=== PATIENT | female | born 1995 | race Caucasian/White ===

== ENCOUNTER 2017-02-21 20:38 | Emergency (ER) | payer OTHER ==
[~2017-02-21] VITALS: Ht 167.6 cm; Wt 70.4 kg
[2017-02-21 21:17] LABS: HEMATOCRIT 38.2 % (36.0-46.0); MCH 29.4 PG (29.0-34.0); MCHC 33.2 G/DL (30.0-36.0); MCV 88.4 FL (83-99); MEAN PLAT.VOLUME 9.4 uM^3 (9.5-12.4); PLATELET COUNT 260 K/uL (156-360); RBC DIS.WIDTH-CV 11.9 % (11.8-14.6); RBC DIS.WIDTH-SD 38.5 % (39-53); RED BLOOD COUNT 4.32 M/uL (3.80-5.20); WHITE BLOOD COUNT 6.6 K/uL (4.1-10.2)
[2017-02-21] MEDS ORDERED: ZANTAC (21:19)
[2017-02-21] MEDS ORDERED: PREVIFEM1 EACH PO (21:19)
[2017-02-21] MEDS ORDERED: ZOLOFT (21:20)
[2017-02-21] MEDS ORDERED: IMITREX (21:20)
[2017-02-21] MEDS ORDERED: ZOFRAN (21:20)
[2017-02-21 21:28] LABS: CHLORIDE 107 mEq/L (99-109); POTASSIUM 3.7 mEq/L (3.7-5.4)
[2017-02-21 21:29] LABS: SODIUM 143 mEq/L (136-147)
[2017-02-21 21:30] LABS: GLUCOSE 109 mg/dL (70-99)
[2017-02-21 21:32] LABS: ANION GAP 10 MEQ/L (2-14)
[2017-02-21 21:34] LABS: GFR ESTIMATE (CALCULATED) > 59 mL/min/
[2017-02-21 21:35] LABS: UREA NITROGEN (BUN) 11 mg/dL (9-23)
[2017-02-21 21:43] LABS: QUANTITATIVE HCG < 4.0 MIU/ML
[2017-02-21 22:36] LABS: ADD MIUA? YES; BILIRUBIN NEGATIVE; BLOOD SMALL; COLOR AMBER ((YELLOW)); GLUCOSE (STRIP) NEGATIVE; KETONES NEGATIVE; LEUKOCYTES NEGATIVE; NITRITE POSITIVE; PROTEIN (STRIP) NEGATIVE; SPECIFIC GRAVITY 1.009 (1.000-1.030)
[2017-02-21 22:40] LABS: BACTERIA NONE SEEN /HPF; EPITHELIAL CELLS RARE /HPF; MUCUS NONE SEEN /LPF; RED BLOOD CELLS 0-5 /HPF (0-5); UCUL ADDED? NO; WHITE BLOOD CELLS NONE SEEN /HPF (0-5)
[2017-02-21 23:05] VITALS: BP 131/90
== END 2017-02-21 23:06 | disposition home or self-care (01) ==
LOC: EME 20:38
PROVIDERS: Physician Assistant
DX: N39.0 Urinary tract infection, site not specified (principal); R10.2 Pelvic and perineal pain; Z79.3 Long term (current) use of hormonal contraceptives; Z88.0 Allergy status to penicillin
CPT/HCPCS: 76856; 80048; 81003; 84702; 85027; 87086; 99281; 99284

== ENCOUNTER 2017-06-12 16:57 | Emergency (ER) | payer OTHER ==
[~2017-06-12] VITALS: Ht 167.6 cm; Wt 73.1 kg
[~2017-06-12 16:57] MED LIST: IMITREX; PREVIFEM1 EACH PO; ZANTAC; ZOFRAN; ZOLOFT
[2017-06-12 19:20] LABS: EOSINOPHIL (%) 3.3 % (0-5); EOSINOPHIL COUNT 0.4 K/uL (0-0.3); HEMATOCRIT 37.5 % (36.0-46.0); IMMATURE GRANULOCYTE (%) 0.3 % (0.0-0.7); INSTRUMENT ABS NEUTROPHIL CT 6.6 K/uL; LYMPHOCYTE COUNT 2.8 K/uL (1.0-2.8); MCH 28.8 PG (29.0-34.0); MCHC 32.8 G/DL (30.0-36.0); MCV 87.8 FL (83-99); MEAN PLAT.VOLUME 9.6 uM^3 (9.5-12.4); MONOCYTE (%) 6.1 % (3-12); MONOCYTE COUNT 0.6 K/uL (0-0.8); NEUTROPHIL (%) 63.2 % (45-76); NEUTROPHIL COUNT 6.6 K/uL (1.8-6.4); PLATELET COUNT 314 K/uL (156-360); RBC DIS.WIDTH-CV 11.7 % (11.8-14.6); RBC DIS.WIDTH-SD 37.3 % (39-53); RED BLOOD COUNT 4.27 M/uL (3.80-5.20); WHITE BLOOD COUNT 10.5 K/uL (4.1-10.2)
[2017-06-12 19:27] LABS: CHLORIDE 104 mEq/L (99-109); POTASSIUM 3.9 mEq/L (3.7-5.4); SODIUM 140 mEq/L (136-147)
[2017-06-12 19:29] LABS: GLUCOSE 88 mg/dL (70-99)
[2017-06-12 19:31] LABS: ANION GAP 10 MEQ/L (2-14); TOTAL BILIRUBIN 0.3 mg/dL (0.0-1.0)
[2017-06-12 19:33] LABS: ALKALINE PHOSPHATASE 61 IU/L (3-129); GFR ESTIMATE (CALCULATED) > 59 mL/min/
[2017-06-12 19:34] LABS: UREA NITROGEN (BUN) 9 mg/dL (9-23)
[2017-06-12 19:47] LABS: QUANTITATIVE HCG < 4.0 MIU/ML
[2017-06-12 19:52] LABS: INTERNAL CONTROL VALID? YES; MONOSPOT (MONONUCLEOSIS SEROL) NEGATIVE
[2017-06-12] MEDS ORDERED: LEVAQUIN750 MG PO (21:38)
[2017-06-12] MEDS ORDERED: MOTRIN800 MG PO (21:38)
[2017-06-12] MEDS ORDERED: ANTIFUNGAL30 GM TP (21:39)
[2017-06-12 21:55] VITALS: BP 118/74
== END 2017-06-12 21:58 | disposition home or self-care (01) ==
LOC: EME 16:57
PROVIDERS: Nurse Practitioner Family
DX: I88.9 Nonspecific lymphadenitis, unspecified (principal); B35.3 Tinea pedis; Z88.0 Allergy status to penicillin
CPT/HCPCS: 70487; 80053; 84702; 85025; 86308; 99281; 99284; J1885